=== PATIENT | male | born 1980 | race American Indian/Alaskan Native ===

== ENCOUNTER 2017-03-03 18:35 | Emergency (ER) | payer SELFPAY ==
[2017-03-03 20:26] VITALS: BP 196/130
== END 2017-03-03 21:51 | disposition left against medical advice (07) ==
LOC: ED 18:35
DX: I10 Essential (primary) hypertension (principal); Z53.21 Procedure and treatment not carried out due to patient leaving prior to being seen by health care provider

== ENCOUNTER 2018-09-07 15:55 | Emergency (ER) | payer OTHER ==
[2018-09-07] MEDS ORDERED: ASPIRIN PO ONE (16:06)
[2018-09-07] MEDS ORDERED: CATAPRES PO ONE (16:07)
--- NOTE | 2018-09-07 16:50 | Cat Scan Report ---
FINAL REPORT EXAM: CT HEAD/BRAIN WO CON HISTORY: Chest heavy, SOB, Htn COMPARISON: None. TECHNIQUE: Multiple contiguous axial images were obtained from skullbase to the vertex without admin istration of IV contrast. FINDINGS: There is normal brain volume for the patient's age. There is normal diane-white differentiation. There is no parenchymal hemorrhage or extra-axial fluid collection. There is no mass or mass effect. There is no acute territorial infarct. The ventricles are midline and are not enlarged. The subarachnoid s paces and basilar cisterns are clear. There is no skull fracture. The paranasal sinuses and mastoid a ir cells are clear. The bilateral orbits are intact. IMPRESSION: No acute intracranial abnormality.
[2018-09-07 17:23] LABS: Basophils % (Auto) 0.8 % (0.0-1.8); Eosinophils # (Auto) 0.1 K/mm3 (0.0-0.4); Eosinophils % (Auto) 1.7 % (0.0-4.3); Hematocrit 39.8 % (35.5-45.6); Hemoglobin 13.8 gm/dl (11.8-15.2); Lymphocytes # (Auto) 1.7 K/mm3 (1.2-5.4); Lymphocytes % (Auto) 33.2 % (13.4-35.0); Mean Corpuscular HGB Conc 35 % (32-34); Mean Corpuscular Volume 92 fl (84-94); Monocytes # (Auto) 0.5 K/mm3 (0.0-0.8); Monocytes % (Auto) 9.9 % (0.0-7.3); Platelet Count 240 K/mm3 (140-440); Red Blood Count 4.32 M/mm3 (3.65-5.03); Red Cell Distribution Width 13.2 % (13.2-15.2)
[2018-09-07 18:07] LABS: Alanine Aminotransferase 12 units/L (7-56); Albumin 4.2 g/dL (3.9-5); BUN/Creatinine Ratio 14; Blood Urea Nitrogen 17 mg/dL (9-20); Calcium 9.1 mg/dL (8.4-10.2); Hemolysis Index 13
--- NOTE | 2018-09-07 21:56 | Emergency Department Report ---
ED Headache HPI - General Chief Complaint: Headache Stated Complaint: HIGH BP Time Seen by Provider: 09/07/18 21:55 Source: patient Exam Limitations: no limitations - History of Present Illness Initial Comments: Patient ran out of his blood pressure medication (Amlodipine 10mg) about 2 months ago. C/o Headache today. BP was 218/132 in triage. He was given Clonidine 0.1 mg PO in triage. He said he feels fine now and his headache has resolved. He denies chest pain, abdominal pain, nausea. vomiting or shortness of breath. Timing/Duration: episodic Quality: moderate Head Injury Location: global Recent Head Trauma: no recent headache/trauma Modifying Factors: improves with: medication Associated Symptoms: denies symptoms Allergies/Adverse Reactions: Allergies No Known Allergies Allergy (Unverified 09/07/18 16:05) Home Medications: Ambulatory Orders Amlodipine Besylate [Norvasc] 10 mg PO DAILY #30 tablet 09/08/18 ED Review of Systems ROS: Stated complaint: HIGH BP Other details as noted in HPI Comment: All other systems reviewed and negative Constitutional: denies: chills, fever Eyes: denies: eye pain, eye discharge, vision change ENT: denies: ear pain, throat pain Respiratory: denies: cough, shortness of breath, wheezing Cardiovascular: denies: chest pain, palpitations Endocrine: no symptoms reported Gastrointestinal: denies: abdominal pain, nausea, diarrhea Genitourinary: denies: urgency, dysuria Musculoskeletal: denies: back pain, joint swelling, arthralgia Skin: denies: rash, lesions Neurological: headache. denies: weakness, paresthesias Psychiatric: denies: anxiety, depression Hematological/Lymphatic: denies: easy bleeding, easy bruising ED Past Medical Hx - Past Medical History Previous Medical History?: Yes Hx Hypertension: Yes (no meds) - Surgical History Past Surgical History?: No - Social History Smoking Status: Never Smoker Substance Use Type: None - Medications Home Medications: Home Medications Medication Instructions Recorded Confirmed Last Taken Type Amlodipine Besylate [Norvasc] 10 mg PO DAILY #30 tablet 09/08/18 Unknown Rx ED Physical Exam - General Limitations: No Limitations General appearance: alert, in no apparent distress - Head Head exam: Present: atraumatic, normocephalic - Eye Eye exam: Present: normal appearance, PERRL, EOMI Pupils: Present: normal accommodation - ENT ENT exam: Present: normal exam, normal orophraynx, mucous membranes moist - Neck Neck exam: Present: normal inspection, tenderness, full ROM - Respiratory Respiratory exam: Present: normal lung sounds bilaterally. Absent: respiratory distress, wheezes, rales, rhonchi - Cardiovascular Cardiovascular Exam: Present: regular rate, normal rhythm. Absent: systolic murmur, diastolic murmur, rubs, gallop - GI/Abdominal GI/Abdominal exam: Present: soft, normal bowel sounds. Absent: distended, tenderness, guarding, rebound - Rectal Rectal exam: Present: deferred - Extremities Exam Extremities exam: Present: normal inspection, full ROM, normal capillary refill - Back Exam Back exam: Present: normal inspection - Neurological Exam Neurological exam: Present: alert, oriented X3, CN II-XII intact - Psychiatric Psychiatric exam: Present: normal affect, normal mood - Skin Skin exam: Present: warm, dry, intact, normal color. Absent: rash ED Course Vital Signs 09/07/18 09/07/18 09/07/18 16:02 17:16 21:41 Temperature 97.8 F 97.9 F Pulse Rate 99 H 89 Respiratory 18 18 Rate Blood Pressure 218/132 203/145 Blood Pressure 211/131 [Right] O2 Sat by Pulse 98 99 Oximetry 09/07/18 09/07/18 09/07/18 22:30 22:53 23:00 Temperature 97.8 F Pulse Rate 79 76 84 Respiratory 16 22 Rate Blood Pressure 183/125 190/136 176/123 Blood Pressure 192/134 [Right] O2 Sat by Pulse 99 97 Oximetry 09/07/18 09/07/18 09/08/18 23:16 23:45 00:00 Temperature Pulse Rate 85 100 H 92 H Respiratory 23 18 Rate Blood Pressure 173/114 174/110 184/116 Blood Pressure [Right] O2 Sat by Pulse 97 97 Oximetry 09/08/18 09/08/18 09/08/18 00:15 00:30 00:33 Temperature Pulse Rate 91 H 86 89 Respiratory 13 Rate Blood Pressure 171/113 175/121 175/121 Blood Pressure [Right] O2 Sat by Pulse 99 Oximetry 09/08/18 09/08/18 09/08/18 00:45 01:00 01:15 Temperature Pulse Rate 92 H 85 82 Respiratory 20 17 18 Rate Blood Pressure 181/125 164/101 158/101 Blood Pressure [Right] O2 Sat by Pulse 96 99 97 Oximetry 09/08/18 09/08/18 09/08/18 01:30 02:00 02:30 Temperature Pulse Rate Respiratory 19 19 Rate Blood Pressure 155/94 150/92 142/93 Blood Pressure [Right] O2 Sat by Pulse 95 Oximetry 09/08/18 03:00 Temperature Pulse Rate Respiratory 19 Rate Blood Pressure 140/87 Blood Pressure [Right] O2 Sat by Pulse 97 Oximetry - Reevaluation(s) Reevaluation #1: 09/08/18 03:18 Patient is feeling much better and he is ready to be discharged. ED Medical Decision Making - Lab Data Result diagrams: 09/07/18 17:05 09/07/18 17:05 Lab Results 09/07/18 09/07/18 09/07/18 Range/Units 17:05 17:05 22:00 WBC 5.2 (4.5-11.0) K/mm3 RBC 4.32 (3.65-5.03) M/mm3 Hgb 13.8 (11.8-15.2) gm/dl Hct 39.8 (35.5-45.6) % MCV 92 (84-94) fl MCH 32 (28-32) pg MCHC 35 H (32-34) % RDW 13.2 (13.2-15.2) % Plt Count 240 (140-440) K/mm3 Lymph % (Auto) 33.2 (13.4-35.0) % [place] % (Auto) 9.9 H (0.0-7.3) % Eos % (Auto) 1.7 (0.0-4.3) % Baso % (Auto) 0.8 (0.0-1.8) % Lymph # 1.7 (1.2-5.4) K/mm3 [place] # 0.5 (0.0-0.8) K/mm3 Eos # 0.1 (0.0-0.4) K/mm3 Baso # 0.0 (0.0-0.1) K/mm3 Seg Neutrophils % 54.4 (40.0-70.0) % Seg Neutrophils # 2.8 (1.8-7.7) K/mm3 PT 13.2 (12.2-14.9) Sec. INR 0.96 (0.87-1.13) APTT 27.8 (24.2-36.6) Sec. Sodium 141 (137-145) mmol/L Potassium 3.8 (3.6-5.0) mmol/L Chloride 102.7 (98-107) mmol/L Carbon Dioxide 29 (22-30) mmol/L Anion Gap 13 mmol/L BUN 17 (9-20) mg/dL Creatinine 1.2 (0.8-1.5) mg/dL Estimated GFR > 60 ml/min BUN/Creatinine Ratio 14 % Glucose 102 H (75-100) mg/dL Calcium 9.1 (8.4-10.2) mg/dL Total Bilirubin 0.60 (0.1-1.2) mg/dL AST 19 (5-40) units/L ALT 12 (7-56) units/L Alkaline Phosphatase 84 (35-129) units/L Troponin T < 0.010 (0.00-0.029) ng/mL Total Protein 7.2 (6.3-8.2) g/dL Albumin 4.2 (3.9-5) g/dL Albumin/Globulin Ratio 1.4 % - EKG Data -: EKG Interpreted by Nm EKG shows normal: sinus rhythm Rate: normal (87) - EKG Data When compared to previous EKG there are: previous EKG unavailable Interpretation: nonspecific ST-T wave kera, LVH 09/07/18 22:[address] elevation due to LVH. No STEMI. Patient does not have chest pain. - Radiology Data Radiology results: report reviewed, image reviewed CT head showed no acute findings. - Medical Decision Making Uncontrolled Hypertension. Headache. Critical Care Time: Yes Critical care time in (mins) excluding proc time.: 45 Critical care attestation.: If time is entered above; I have spent that time in minutes in the direct care of this critically ill patient, excluding procedure time. ED Disposition Clinical Impression: Uncontrolled hypertension Headache Qualifiers: Headache type: unspecified Headache chronicity pattern: unspecified pattern Intractability: not intractable Qualified Code(s): R51 - Headache Disposition: DC-01 TO HOME OR SELFCARE Is pt being admited?: No Does the pt Need Aspirin: No Condition: Stable Instructions: Hypertension (ED) Additional Instructions: Please follow up with Dr Kip Crisostomo tomorrow morning. Return to the ED if your condition worsens. Prescriptions: Amlodipine Besylate [Norvasc] 10 mg PO DAILY #30 tablet Referrals: PRIMARY CARE, [Primary Care Provider] - 3-5 Days LEAH CRISOSTOMO MD [Staff Physician] - 3-5 Days Time of Disposition: 03:21
[2018-09-07] MEDS ORDERED: ZOFRAN IV ONE (21:58)
[2018-09-07 22:19] LABS: INR 0.96 (0.87-1.13)
[2018-09-07 22:20] LABS: Partial Thromboplastin Time 27.8 Sec. (24.2-36.6)
--- NOTE | 2018-09-07 22:23 | XRay Report ---
FINAL REPORT EXAM: XR CHEST 1V AP HISTORY: cough TECHNIQUE: AP portable view of the chest. PRIORS: None. FINDINGS: The cardiomediastinal silhouette appears normal. The lungs are clear. The bones and soft tissues are unremarkable. IMPRESSION: No evidence of acute cardiopulmonary disease.
[2018-09-07] MEDS ORDERED: APRESOLINE IV ONE (22:25)
[2018-09-08] MEDS ORDERED: NORVASC PO ONE (00:22)
[2018-09-08] MEDS ORDERED: CARDENE 50 MG in NACL 0.9% 250ML 230 ML IV SCH (01:00)
[2018-09-08 03:38] VITALS: BP 140/91
== END 2018-09-08 03:38 | disposition home or self-care (01) ==
LOC: ED 15:55
DX: I10 Essential (primary) hypertension (principal)
CPT/HCPCS: 36415; 70450; 71045; 80053; 82550; 83880; 84484; 85025; 85610; 85730; 93005; 93010; 96374; 99285; J0360; 99291; J2405; J7050